=== PATIENT | male | born 1960 | race Caucasian/White ===

== ENCOUNTER 2017-04-12 11:12 | Day surgery (SDC) | payer OTHER ==
[~2017-04-12 11:12] MED LIST: ABAT250V; ACET325 PO; AMIO200 PO; ASPI325 PO; ASPI81EC PO; Adult Low Dose81 MG PO; Bactrim Ds Tab1 EACH PO; CARV3.125 PO; CEPH500 PO; CHLO25 PO; CIPR500 PO; CIPRO500 MG PO; CLIN300 PO; CYAN1000 PO; DICLO GEL1 EACH TOP; DIGO.125 PO; DILT120 PO; DOCU100 PO; DOXY100 PO; Diltiazem ER120 M2 PO; ENSURE ORIGINA237 ML PO; FAMO20 PO; FOLI1 PO; FURO40 PO; Ferrous Sulfat325 M2 PO; HEART MEDICINE; Hair, Skin & N1 EACH PO; IBUP400 PO; IBUP800 PO; K-Dur20 MEQ PO; Keflex500 MG PO; LEVFLO500 PO; LEVSOD50 PO; LISI5 PO; LOPE2C PO; Loperamide2 MG PO; MAGOXI400 PO; METO25ER PO; MULVITMIND PO; NICO14TP TOP; NITR100 PO; OMEPRAZOLE MAGN20 MG PO; OXYC1TAB11 PO; OXYC5 PO; Omeprazole20 M1 PO; PANT40 PO; POTA10T PO; POTCHL10ER PO; POTCHL20ER PO; Prilosec Otc20 MG PO; Prilosec20 MG PO; ROXICODONE5 MG PO; Roxicodone5 MG PO; SPIR25 PO; SPIR50 PO; SUCR1 PO; THIA100 PO; THYROID MEDICINE; TORSE20 PO; VICODIN 5-3001 EACH PO; VITAMIN B-1100 MG PO
[2017-07-26] MEDS ORDERED: Zoloft50 MG PO (00:41)
[2017-07-26] MEDS ORDERED: SPIR50 PO (00:42)
[2017-07-26] MEDS ORDERED: POTCHL20ER PO (00:43)
[2017-07-26] MEDS ORDERED: HYDHCL25 PO (00:44)
[2017-07-26] MEDS ORDERED: SUCR1 PO (00:45)
== END 2017-04-12 23:35 | disposition home or self-care (01) ==
LOC: US 11:12
PROC: 0W9G3ZZ Drainage of Peritoneal Cavity, Percutaneous Approach (ICD-10-PCS; principal; 2017-04-12)
DX: R18.8 Other ascites (principal); I48.91 Unspecified atrial fibrillation; E03.9 Hypothyroidism, unspecified; E87.6 Hypokalemia
CPT/HCPCS: 49083

== ENCOUNTER 2017-04-17 14:05 | Day surgery (SDC) | payer OTHER ==
[2017-07-26] MEDS ORDERED: Zoloft50 MG PO (00:41)
[2017-07-26] MEDS ORDERED: SPIR50 PO (00:42)
[2017-07-26] MEDS ORDERED: POTCHL20ER PO (00:43)
[2017-07-26] MEDS ORDERED: HYDHCL25 PO (00:44)
[2017-07-26] MEDS ORDERED: SUCR1 PO (00:45)
== END 2017-04-17 22:58 | disposition home or self-care (01) ==
LOC: US 14:05
PROC: 0W9G3ZZ Drainage of Peritoneal Cavity, Percutaneous Approach (ICD-10-PCS; principal; 2017-04-17)
DX: R18.8 Other ascites (principal)
CPT/HCPCS: 49083

== ENCOUNTER 2017-04-22 08:45 | Day surgery (SDC) | payer OTHER ==
[2017-07-26] MEDS ORDERED: Zoloft50 MG PO (00:41)
[2017-07-26] MEDS ORDERED: SPIR50 PO (00:42)
[2017-07-26] MEDS ORDERED: POTCHL20ER PO (00:43)
[2017-07-26] MEDS ORDERED: HYDHCL25 PO (00:44)
[2017-07-26] MEDS ORDERED: SUCR1 PO (00:45)
== END 2017-04-22 22:54 | disposition home or self-care (01) ==
LOC: US 08:45
PROC: 0W9G3ZZ Drainage of Peritoneal Cavity, Percutaneous Approach (ICD-10-PCS; principal; 2017-04-22)
DX: R18.8 Other ascites (principal)
CPT/HCPCS: 49083

== ENCOUNTER 2017-04-29 09:56 | Day surgery (SDC) | payer OTHER ==
[2017-07-26] MEDS ORDERED: Zoloft50 MG PO (00:41)
[2017-07-26] MEDS ORDERED: SPIR50 PO (00:42)
[2017-07-26] MEDS ORDERED: POTCHL20ER PO (00:43)
[2017-07-26] MEDS ORDERED: HYDHCL25 PO (00:44)
[2017-07-26] MEDS ORDERED: SUCR1 PO (00:45)
== END 2017-04-29 22:55 | disposition home or self-care (01) ==
LOC: US 09:56
PROC: 0W9G3ZZ Drainage of Peritoneal Cavity, Percutaneous Approach (ICD-10-PCS; principal; 2017-04-29)
DX: R18.8 Other ascites (principal)
CPT/HCPCS: 49083

== ENCOUNTER 2017-05-03 14:46 | Day surgery (SDC) | payer OTHER ==
[2017-07-26] MEDS ORDERED: Zoloft50 MG PO (00:41)
[2017-07-26] MEDS ORDERED: SPIR50 PO (00:42)
[2017-07-26] MEDS ORDERED: POTCHL20ER PO (00:43)
[2017-07-26] MEDS ORDERED: HYDHCL25 PO (00:44)
[2017-07-26] MEDS ORDERED: SUCR1 PO (00:45)
== END 2017-05-03 17:40 | disposition home or self-care (01) ==
LOC: US 14:46 → ATC 14:46 → US 15:00 → ATC 17:40
PROC: 0W9G3ZZ Drainage of Peritoneal Cavity, Percutaneous Approach (ICD-10-PCS; principal; 2017-05-03)
DX: R18.8 Other ascites (principal)
CPT/HCPCS: 49083; 96365; P9041

== ENCOUNTER 2017-05-08 06:53 | Emergency (ER) | payer OTHER ==
[~2017-05-08] VITALS: Ht 500.4 cm; Wt 56.7 kg
[2017-05-08 08:00] LABS: BASOPHILS ABSOLUTE AUTO 0.04 K/mm3 (0.00-0.23); BASOPHILS PERCENT AUTO 1 % (0-2); EOSINOPHILS ABSOLUTE AUTO 0.21 K/mm3 (0.00-0.68); EOSINOPHILS PERCENT AUTO 3 % (0-6); Hematocrit 27.4 % (37.0-53.0); Hemoglobin 8.1 g/dL (13.5-17.5); IMMATURE GRAN ABSOLUTE AUTO 0.04 K/mm3 (0.00-0.10); IMMATURE GRAN PERCENT AUTO 1 % (0-1); LYMPHOCYTES ABSOLUTE AUTO 1.35 K/mm3 (0.84-5.20); LYMPHOCYTES PERCENT AUTO 20 % (21-46); MONOCYTES ABSOLUTE AUTO 0.91 K/mm3 (0.16-1.47); MONOCYTES PERCENT AUTO 13 % (4-13); Mean Corpuscular HGB 21.9 pg (26.0-34.0); Mean Corpuscular HGB Conc 29.6 g/dL (31.5-36.5); Mean Corpuscular Volume 74 fL (80-100); NEUTROPHILS ABSOLUTE AUTO 4.32 K/mm3 (1.96-9.15); NEUTROPHILS PERCENT AUTO 63 % (41-73); Platelet Count 367 K/mm3 (150-400); RDW Coefficient Variation 17.2 % (11.7-14.2); RDW Standard Deviation 45.6 fL (35.1-46.3); White Blood Cell Count 6.87 K/mm3 (4.00-11.30)
[2017-05-08 08:15] LABS: Alanine Aminotransfer (ALT/SGP 41 U/L (12-78); Albumin, Blood 2.2 g/dL (3.4-5.0); Albumin/Globulin Ratio 0.6 (0.8-1.8); Alk Phos 137 U/L (50-136); Anion Gap 10 mmol/L (6-16); Aspartate Aminotrans (AST/SGOT 64 U/L (12-37); Bilirubin, Total 0.2 mg/dL (0.1-1.0); Blood Urea Nitrogen 9 mg/dL (8-24); Bun/Creatinine Ratio 11.8 (12.0-20.0); CO2, Blood 24 mmol/L (21-32); Calcium, Blood 7.6 mg/dL (8.5-10.1); Chloride, Blood 107 mmol/L (98-108); Creatinine, Blood 0.77 mg/dL (0.60-1.20); Globulin, Blood 3.6 g/dL (2.2-4.0); Glomerular Filtration Rate >60 (60-); Glucose, Blood 81 mg/dL (70-99); Potassium, Blood 3.4 mmol/L (3.5-5.5); Prothrombin Time Results 10.4 Sec (9.7-11.5); Sodium, Blood 141 mmol/L (136-145); Total Protein, Blood 5.8 g/dL (6.4-8.2)
[2017-07-26] MEDS ORDERED: Zoloft50 MG PO (00:41)
[2017-07-26] MEDS ORDERED: SPIR50 PO (00:42)
[2017-07-26] MEDS ORDERED: POTCHL20ER PO (00:43)
[2017-07-26] MEDS ORDERED: HYDHCL25 PO (00:44)
[2017-07-26] MEDS ORDERED: SUCR1 PO (00:45)
== END 2017-05-08 12:17 | disposition home or self-care (01) ==
LOC: ER 06:53
PROVIDERS: Emergency Medicine
DX: K70.31 Alcoholic cirrhosis of liver with ascites (principal); F10.20 Alcohol dependence, uncomplicated; D64.9 Anemia, unspecified; Z59.0 Homelessness; F17.200 Nicotine dependence, unspecified, uncomplicated; Z88.0 Allergy status to penicillin; Z88.2 Allergy status to sulfonamides; Z79.899 Other long term (current) drug therapy; Z79.2 Long term (current) use of antibiotics
CPT/HCPCS: 36415; 71046; 80053; 85025; 85610; 96361; 96374; 99283; J2405; J7030

== ENCOUNTER 2017-05-10 00:59 | Day surgery (SDC) | payer OTHER ==
[2017-07-26] MEDS ORDERED: Zoloft50 MG PO (00:41)
[2017-07-26] MEDS ORDERED: SPIR50 PO (00:42)
[2017-07-26] MEDS ORDERED: POTCHL20ER PO (00:43)
[2017-07-26] MEDS ORDERED: HYDHCL25 PO (00:44)
[2017-07-26] MEDS ORDERED: SUCR1 PO (00:45)
== END 2017-05-10 12:35 | disposition home or self-care (01) ==
LOC: US 00:59 → ATC 00:59 → LAB 00:59 → US 10:00 → ATC 12:35 → US 05-16 14:00
PROC: 0W9G3ZZ Drainage of Peritoneal Cavity, Percutaneous Approach (ICD-10-PCS; principal; 2017-05-10)
DX: R18.8 Other ascites (principal)
CPT/HCPCS: 49083; 96365; P9041

== ENCOUNTER 2017-05-17 00:51 | Day surgery (SDC) | payer OTHER ==
[2017-07-26] MEDS ORDERED: Zoloft50 MG PO (00:41)
[2017-07-26] MEDS ORDERED: SPIR50 PO (00:42)
[2017-07-26] MEDS ORDERED: POTCHL20ER PO (00:43)
[2017-07-26] MEDS ORDERED: HYDHCL25 PO (00:44)
[2017-07-26] MEDS ORDERED: SUCR1 PO (00:45)
== END 2017-05-17 23:28 | disposition home or self-care (01) ==
LOC: US 00:51
PROC: 0W9G3ZZ Drainage of Peritoneal Cavity, Percutaneous Approach (ICD-10-PCS; principal; 2017-05-17)
DX: K74.60 Unspecified cirrhosis of liver (principal); B19.20 Unspecified viral hepatitis C without hepatic coma; R18.8 Other ascites; F17.210 Nicotine dependence, cigarettes, uncomplicated; K92.2 Gastrointestinal hemorrhage, unspecified; I48.91 Unspecified atrial fibrillation; Z79.899 Other long term (current) drug therapy; Z88.0 Allergy status to penicillin; Z88.2 Allergy status to sulfonamides
CPT/HCPCS: 49083

== ENCOUNTER 2017-05-23 09:01 | Day surgery (SDC) | payer OTHER ==
[2017-07-26] MEDS ORDERED: Zoloft50 MG PO (00:41)
[2017-07-26] MEDS ORDERED: SPIR50 PO (00:42)
[2017-07-26] MEDS ORDERED: POTCHL20ER PO (00:43)
[2017-07-26] MEDS ORDERED: HYDHCL25 PO (00:44)
[2017-07-26] MEDS ORDERED: SUCR1 PO (00:45)
== END 2017-05-23 22:35 | disposition home or self-care (01) ==
LOC: US 09:01
PROC: 0W9G3ZZ Drainage of Peritoneal Cavity, Percutaneous Approach (ICD-10-PCS; principal; 2017-05-23)
DX: R18.8 Other ascites (principal)
CPT/HCPCS: 49083

== ENCOUNTER 2017-05-29 08:43 | Day surgery (SDC) | payer OTHER ==
[2017-07-26] MEDS ORDERED: Zoloft50 MG PO (00:41)
[2017-07-26] MEDS ORDERED: SPIR50 PO (00:42)
[2017-07-26] MEDS ORDERED: POTCHL20ER PO (00:43)
[2017-07-26] MEDS ORDERED: HYDHCL25 PO (00:44)
[2017-07-26] MEDS ORDERED: SUCR1 PO (00:45)
== END 2017-05-29 22:56 | disposition home or self-care (01) ==
LOC: US 08:43
PROC: 0W9G3ZZ Drainage of Peritoneal Cavity, Percutaneous Approach (ICD-10-PCS; principal; 2017-05-29)
DX: K74.60 Unspecified cirrhosis of liver (principal); R18.8 Other ascites; B19.20 Unspecified viral hepatitis C without hepatic coma; F17.210 Nicotine dependence, cigarettes, uncomplicated; K92.2 Gastrointestinal hemorrhage, unspecified; I48.91 Unspecified atrial fibrillation; Z79.899 Other long term (current) drug therapy; Z88.0 Allergy status to penicillin; Z88.2 Allergy status to sulfonamides
CPT/HCPCS: 49083

== ENCOUNTER 2017-06-05 00:25 | Day surgery (SDC) | payer OTHER ==
[2017-07-26] MEDS ORDERED: Zoloft50 MG PO (00:41)
[2017-07-26] MEDS ORDERED: SPIR50 PO (00:42)
[2017-07-26] MEDS ORDERED: POTCHL20ER PO (00:43)
[2017-07-26] MEDS ORDERED: HYDHCL25 PO (00:44)
[2017-07-26] MEDS ORDERED: SUCR1 PO (00:45)
== END 2017-06-05 22:46 | disposition home or self-care (01) ==
LOC: US 00:25
DX: R18.8 Other ascites (principal); K74.60 Unspecified cirrhosis of liver; B19.20 Unspecified viral hepatitis C without hepatic coma; F17.210 Nicotine dependence, cigarettes, uncomplicated; K92.2 Gastrointestinal hemorrhage, unspecified; I48.91 Unspecified atrial fibrillation; Z79.899 Other long term (current) drug therapy; Z88.0 Allergy status to penicillin; Z88.2 Allergy status to sulfonamides
CPT/HCPCS: 76705

== ENCOUNTER 2017-06-10 14:42 | Day surgery (SDC) | END 2017-06-10 22:51 | disposition home or self-care (01) ==

== ENCOUNTER 2017-06-19 00:19 | Day surgery (SDC) | payer OTHER ==
[2017-07-26] MEDS ORDERED: Zoloft50 MG PO (00:41)
[2017-07-26] MEDS ORDERED: SPIR50 PO (00:42)
[2017-07-26] MEDS ORDERED: POTCHL20ER PO (00:43)
[2017-07-26] MEDS ORDERED: HYDHCL25 PO (00:44)
[2017-07-26] MEDS ORDERED: SUCR1 PO (00:45)
== END 2017-06-19 22:55 | disposition home or self-care (01) ==
LOC: US 00:19
PROC: BW40ZZZ Ultrasonography of Abdomen (ICD-10-PCS; principal; 2017-06-19)
DX: R18.8 Other ascites (principal); K74.60 Unspecified cirrhosis of liver; B19.20 Unspecified viral hepatitis C without hepatic coma; F17.210 Nicotine dependence, cigarettes, uncomplicated; I48.91 Unspecified atrial fibrillation
CPT/HCPCS: 76705

== ENCOUNTER 2017-07-03 14:01 | Day surgery (SDC) | payer OTHER ==
[2017-07-26] MEDS ORDERED: Zoloft50 MG PO (00:41)
[2017-07-26] MEDS ORDERED: SPIR50 PO (00:42)
[2017-07-26] MEDS ORDERED: POTCHL20ER PO (00:43)
[2017-07-26] MEDS ORDERED: HYDHCL25 PO (00:44)
[2017-07-26] MEDS ORDERED: SUCR1 PO (00:45)
== END 2017-07-03 23:00 | disposition home or self-care (01) ==
LOC: ATC 14:01 → US 14:01 → ATC 15:00 → US 15:00 → ATC 23:00
PROC: BW40ZZZ Ultrasonography of Abdomen (ICD-10-PCS; principal; 2017-07-03)
DX: R18.8 Other ascites (principal); K74.60 Unspecified cirrhosis of liver; F17.210 Nicotine dependence, cigarettes, uncomplicated; I48.91 Unspecified atrial fibrillation
CPT/HCPCS: 76705

== ENCOUNTER → 2017-07-30 | Outpatient (CLI) | payer OTHER ==
[~2017-07-30] MED LIST changes: +HYDHCL25 PO; +Zoloft50 MG PO
[2017-07-30 10:28] LABS: Adenovirus F 40/41 Not Detected (NOT DETECT); Astrovirus Not Detected (NOT DETECT); Campylobacter Sp Not Detected (NOT DETECT); Cryptosporidium Not Detected (NOT DETECT); Cyclospora Cayetanensis Not Detected (NOT DETECT); E. Coli O157 Not Detected (NOT DETECT); Entamoeba Histolytica Not Detected (NOT DETECT); Enteroaggregative E. coli-EAEC Not Detected (NOT DETECT); Enteropathogenic E. coli-EPEC Not Detected (NOT DETECT); Enterotoxigenic E. coli-ETEC Not Detected (NOT DETECT); Giardia Lamblia Not Detected (NOT DETECT); Norovirus GI/GII Not Detected (NOT DETECT); Plesiomonas Shigelloides Not Detected (NOT DETECT); Rotavirus A Not Detected (NOT DETECT); Salmonella Sp Not Detected (NOT DETECT); Sapovirus Not Detected (NOT DETECT); Shiga Toxin-prod E. coli-STEC Not Detected (NOT DETECT); Shigella/Enteroin E. coli-EIEC Not Detected (NOT DETECT); Vibrio Cholerae Not Detected (NOT DETECT); Vibrio Sp Not Detected (NOT DETECT); Yersinia Enterocolitica Not Detected (NOT DETECT)
== END | disposition home or self-care (01) ==
LOC: LAB SHORT 10:10 → LAB 10:10 → LAB FUT 05-28 12:50 → EDSTATUS 05-28 12:50
PROVIDERS: Internal Medicine Gastroenterology
DX: R19.7 Diarrhea, unspecified (principal)
CPT/HCPCS: 87507

== ENCOUNTER → 2017-08-07 | Outpatient (CLI) | payer OTHER | LOC: LAB SHORT 14:35 → LAB EV 14:35 | DX: H60.501 Unspecified acute noninfective otitis externa, right ear (principal) | CPT/HCPCS: 87070; 87077; 87147; 87186; 87205 ==